=== PATIENT | male | born 1945 | race Caucasian/White ===

== ENCOUNTER 2017-09-24 17:40 | Emergency (ER) | payer MEDICARE, OTHER ==
[2017-09-24] MEDS ORDERED: Ketorolac Tromethamine 30 MG/ML VIAL ONE (17:56)
[2017-09-24] MEDS ORDERED: Morphine 10 MG/ML VIAL ONE (17:56)
[2017-09-24] MEDS ORDERED: Dexamethasone 10 MG/ML VIAL ONE (18:51)
--- NOTE | 2017-09-24 20:24 | CT ---
CT LUMBAR SPINE WITHOUT CONTRAST: 09/24/17 Multiple axial tomograms obtained through the lumbar spine without IV enhancement. HISTORY: Back pain. No radiation according to technologist's history. The lumbar vertebrae maintain normal height and alignment. Disc spaces are preserved. There is no fallon dence of spondylolisthesis or spondylolysis. At L1-2, minimal disc bulge without central canal or foraminal stenosis. At L2-3, mild diffuse disc bulge. Mild facet arthrosis and hypertrophy. These changes result in mild central canal stenosis. At L3-4, diffuse broad based bulge flattens the thecal sac. Facet and ligamentous hypertrophy is more pronounced. These changes result in a moderate central canal stenosis. At L4-5, broad based disc bulge combined with facet and ligamentous hypertrophy results in moderate c entral canal stenosis. At L5-S1, mild diffuse disc bulge. Facet hypertrophy is present, however, no significant central deny l stenosis. IMPRESSION: Moderate central canal stenosis at L3-4 and L4-5 with mild to moderate central canal stenosis at L2-3 . POS: THEO
== END 2017-09-24 19:36 | disposition home or self-care (01) ==
LOC: SCSER 17:40
DX: M54.5 Low back pain (principal); E78.00 Pure hypercholesterolemia, unspecified
CPT/HCPCS: 72131; 96372; J1100; J1885; J2270